=== PATIENT | female | born 1990 ===

== ENCOUNTER 2024-04-04 03:16 | Inpatient (IN) | payer OTHER, SELFPAY ==
[2024-04-03] VITALS (16 sets, daily range): BP systolic 74–108; BP diastolic 39–66
[2024-04-03 19:30] LABS: % Basophils 0.2 % (0-2); % Immature Granulocytes 0.4 % (0-0.5); % Lymphocytes 5.3 % (20.5-51.1); % Monocytes 5.1 % (1.7-9.3); Absolute Immature Granulocytes 0.1 10^3/uL (0-0.05); Absolute Lymphocytes 0.9 10^3/uL (1.2-3.4); Absolute Monocytes 0.9 10^3/uL (0.1-0.6); Absolute Neutrophils 15.7 10^3/uL (1.4-6.5); Hematocrit 39.4 % (37.0-47.0); Hemoglobin 14.2 g/dL (12.0-16.0); Mean Corpuscular Hgb 32.6 pg (27.0-31.0); Mean Corpuscular Volume 90.4 fL (81.0-99.0); Mean Platelet Volume 9.6 fL (7.4-10.4); Nucleated Red Blood Cells % 0 %; Platelet Count 217 10^3/uL (130-400); Red Blood Cell Count 4.36 10^6/uL (4.20-5.40); Red Cell Dist. Width 11.9 % (11.5-14.5); White Blood Cell Count 17.6 10^3/uL (4.8-10.8)
--- NOTE | 2024-04-03 19:33 | ED.GENMED ---
History of Present Illness
General
Chief Complaint: Abdominal Symptoms
Source: patient
Exam Limitations: none
Time Seen by Provider: 04/03/24 19:14
History of Present Illness
History of Present Illness:
This is a 34 year old female that comes in with c/o vomiting and diarrhea. States that she awoke this morning not feeling well. State that she then started with nausea and vomiting with diarrhea. States that she also had abd pain and this continued
to get worse all day. States that she does have a yeast infection right now. States that she gets hot and then chills after vomiting and she felt lightheaded like she was going to pass out. Denies any fever, chest pain, SOB, headache, dizziness,
urinary burning.
Past History
Past History
ED Past Medical History: None; Negative Asthma, HTN, Hypercholesterolemia or NIDDM
ED Past Surgical History: None
Social History
Tobacco: Non-smoker
Alcohol: Occasional
Personal:
Living: with family
Review of Systems
Review of Systems
All Other Systems: ROS reviewed and negative except as documented in HPI and ROS
Constitutional: Reports other (Hot and then cold after vomiting); Denies fever
EENT: Reports no symptoms
Respiratory: Reports no symptoms; Denies cough or trouble breathing
Cardiac: Reports no symptoms; Denies chest pain
ABD/GI: Reports abdominal pain (pain), nausea, vomiting and diarrhea
: Reports no symptoms; Denies dysuria, frequency or urgency
Musculoskeletal: Reports no symptoms
Skin: Reports no symptoms
Neurological: Reports other (Lightheaded); Denies dizzy or headache
Psychiatric: Reports no symptoms
Phy Exam
General Physical Exam
General Presentation: mild distress
General age: appears stated age
General Skin: warm and dry
General Habitus: normal
General Mental: alert
General Hydration: dry mucous membranes
ENT Exam
ENT Exam: TM's normal, pharynx normal and neck supple
Eye Exam
Eye Exam: EOMI
Cardiovascular Exam
Cardiovascular Exam: regular rate/rhythm, no edema, no murmur and normal peripheral pulses
Pulmonary Exam
Pulmonary Exam: lungs clear, no respiratory distress, no rales, chest non tender, no crackles, no wheezing and no cough
Gastrointestinal Exam
Gastrointestinal Exam: normal bowel sounds, soft, no organomegaly, no pulsatile mass, non distended, tender (Epigastric and right sided tenderness with palpation) and other (rectal exam hem positive)
Musculoskeletal Exam
Musculoskeletal Exam: full ROM and no edema
Skin Exam
Skin Exam: normal color, warm/dry, no rash and no petechia
Psychiatric Exam
Psychiatric Exam: normal mood/affect
Course
Orders/Labs/Results
Orders:
Orders
04/03/24 19:24
Complete Blood Count/With Diff Urgent
Comprehensive Metabolic Panel Urgent
Lipase Urgent
04/03/24 19:33
0.9% Sodium Chloride 1000 ml [Nss] 1,000 ml IV BOLUS
Metoclopramide [Reglan] 10 mg IV NOW STA
US Abdomen Complete/Upper Urgent
Comment:
Reason For Exam: Upper abd pain
US 1st Trimester Urgent
Comment:
Reason For Exam: abd pain,
04/03/24 19:34
Urinalysis Reflex To Culture Urgent
Date Specimen was Collected: 04/04/24
Time Specimen was Collected: 00:38
US Abdomen - Appendix Only Urgent
Comment:
Reason For Exam: Right sided abd pain
04/03/24 19:41
Acetaminophen 1000MG/100Ml [Ofirmev] 1,000 mg in 100 ml IV ONCE
Acetaminophen IV Indication:: ED Narcotic Naive Pt-ONCE
04/03/24 21:58
0.9% Sodium Chloride 1000 ml [Nss] 1,000 ml IV BOLUS
04/03/24 23:40
Calcium 200mg(Ca. Carb. 500mg) [Tums Chewable Tablet] 200 mg PO NOW STA
04/04/24 00:49
Urine Microscopic Reflex Cult Urgent
Urine Culture Urgent
PETROS Source: U
Specimen Description:
Date Specimen was Collected: 04/04/24
Time Specimen was Collected: 00:38
Abnormal Lab Results
04/03/24 04/04/24
19:24 00:49
WBC 17.6 H 10^3/uL
(4.8-10.8)
MCH 32.6 H pg
(27.0-31.0)
Abs Immat Gran (auto) 0.1 H 10^3/uL
(0-0.05)
Absolute Neuts (auto) 15.7 H 10^3/uL
(1.4-6.5)
Absolute Lymphs (auto) 0.9 L 10^3/uL
(1.2-3.4)
Absolute Monos (auto) 0.9 H 10^3/uL
(0.1-0.6)
Neutrophils % 89.0 H %
(42.2-75.2)
Lymphocytes % 5.3 L %
(20.5-51.1)
Carbon Dioxide 20 L mmol/L
(22-30)
Glucose 139 H mg/dl
(70-99)
Calcium 10.4 H mg/dl
(8.4-10.2)
Urine Ketones 3+ A
(Negative)
Leukocyte Esterase Rfl 1+ A
(Negative)
Urine Glucose 1+ A
(Negative)
04/03/24 19:24
04/03/24 19:24
Leukocytosis, carbon dioxide slightly low. Hyperglycemia. calcium slightly elevated. Urine negative for infection. Lipase normal at 83
Vital Signs
Initial and Last Documented VS:
Initial Vital Signs
Temp Pulse Resp BP Pulse Ox
97.5 F 64 18 94/47 97
04/03/24 19:12 04/03/24 19:12 04/03/24 19:12 04/03/24 19:12 04/03/24 19:12
Last Documented Vital Signs
Temp Pulse Resp BP Pulse Ox
97.5 F 80 19 99/50 99
04/03/24 19:12 04/03/24 23:45 04/03/24 23:45 04/03/24 23:45 04/03/24 22:26
MDM/Problems Addressed
Differential Diagnosis Includes:
GI viral syndrome, gastritis, Gallbladder disease
MDM/Problems Addressed:
This is a 34 year old female that comes in with c/o vomiting and diarrhea. States that she started with abd pain today and then vomiting and diarrhea. states that this continued to get worse throughout the day. States that she can't keep anything
down. States that she felt lightheaded with the vomiting and was sweaty when vomiting. Denies any fever, chest pain, SOB, headache, dizziness, urinary burning.
Will get labs, US Abd, First trimester US and Appendix.
back into see patient as patient got up to the bathroom and had diarrhea that was bloody. Rectal exam completed and rectal is positive for blood. Explained to patient that this may be a colitis but the fact that she is a CT scan will not be
done. May need to admit patient for antibiotics and fluids as patient BP is very low.
US pelvis cont- The ovaries were not seen, presumably obscured by bowel. NO appreciable free fluid or adnexal masses.
Back into see patient. Explained that her blood work shows an elevated WBC's and her Stool was hem positive. Patient US are negative. Patient is 11 weeks 0 days. This may be a colitis as patient has abd tenderness with palpation. Will place on Zosyn
and admit patient. Patient continues to be nauseated will also give Reglan. Hospitalist notified about admission.
Chronic conditions affecting care:
NA
Acute Exacerbation and/or Progression of Chronic Illness:
NA
*Radiology
Radiology exam reviewed: radiology read reviewed (US abd-night hawk- Normal gallbladder. No gallstones, gallbladder wall thickening, or pericholecystic fluid. Negative Sonographic Bermudez's sign. No biliary ductal dilation. The visualized common duct
measures 4mm in caliber. Normal liver. Borderline splenomegaly at 14cm may be physiologic in gravid ), all reviewed NAD by ED Provider (US abd cont- state. Pancreas largely obscured by bowel gas. Normal bilateral kidneys. No hydronephrosis. US
appendix night hawk- The appendix is not sonographically identified. Accordingly, cannot technically exclude acute appendicitis based on this study. No identified free fluid, abnormal fluid) and other (US appendix cont- collections, or obvious
masses within the right lower quadrant. US pelvis- Single live intrauterine with heart rate of 165 beats/min. Extimated gestational age of 11 weeks 0 days by crown-rump length. Small subchorionic hemorrhage measuring [id number].)
*Pulse Oximetry
Patient hypoxic: no
*EKG
Interpreted by ED Provider?: NA
Rate: EKG- N/A
*[employer] Airspace Control Officer Interpretation
Rate: [employer] Airspace Control Officer- N/A
*Critical Care Note
Total Time (30-74mins, 75-104mins- exclusive of procedures): Not Applicable
ED Attending Note
-
Portions of this chart may have been created with voice recognition software.� Occasional wrong word or��sound alike� substitutions may have occurred due to the inherent limitations of voice recognition software.
Discharge Plan
Departure
Patient Disposition: Admit
Date of Disposition: 04/04/24
Time of Disposition: 01:16
Admit to: Med/Surg
Presentation/result/management discussed w/ accepting MD/DO: Hospitalist
Patient with high blood pressure during this ER visit?: No
Condition: Good
Covid-19: Not Applicable
Discharge Problem:
Abdominal pain, Nausea & vomiting, Heme positive stool
Referrals:
Josse Donnelly MD [Family Provider] -
Interventions
Interventions:
*Risk Screen - Suicide Last Done: 04/03/24 19:13
*General Assessment Last Done: 04/03/24 19:13
*Neglect/Abuse Screening Last Done: 04/03/24 19:13
*ED COVID-19 Vaccine History Last Done: 04/03/24 19:28
JB-Pqluyu-Vtaydwayrl Assessment Last Done: 04/03/24 19:27
Discharge Date and Time
Print Language: ITALIAN
[2024-04-03 19:44] LABS: ALT (SGPT) 16 U/L (0-35); AST (SGOT) 19 U/L (14-36); Albumin 4.8 g/dl (3.5-5.0); Alkaline Phosphatase 63 U/L (38-126); Blood Urea Nitrogen 9 mg/dl (7-17); Calcium 10.4 mg/dl (8.4-10.2); Carbon Dioxide 20 mmol/L (22-30); Chloride 101 mmol/L (98-107); Glucose 139 mg/dl (70-99); Lipase 83 U/L (23-300); Potassium 3.7 mmol/L (3.5-5.1); Sodium 137 mmol/L (135-145); Total Bilirubin 0.6 mg/dl (0.2-1.3); Total Protein 7.1 g/dl (6.3-8.2); eGFR > 60.00
[2024-04-03] MEDS: NSS 1000 IV ×2 (19:55→21:58)
[2024-04-03] MEDS: OFIRMEV 100 IV (19:55)
[2024-04-03] MEDS: REGLAN 10 MG IV (19:55)
[2024-04-03] MEDS: TUMS CHEWABLE TABLET 200 MG PO (23:49)
[2024-04-04] VITALS (12 sets, daily range): BP systolic 90–114; BP diastolic 49–93; PULSE 95–105; BMI 30.1
[2024-04-04 00:56] LABS: Urine Albumin Trace (Neg - Trace); Urine Bilirubin Negative (Negative); Urine Character Slightly Cloudy (Clear); Urine Color Yellow; Urine Glucose 1+ (Negative); Urine Ketone 3+ (Negative); Urine Leukocyte 1+ (Negative); Urine Nitrite Negative (Negative); Urine Occult Blood Negative (Negative); Urine Specific Gravity 1.025 (<1.030); Urine Urobilinogen Negative (Neg - 1+)
[2024-04-04] MEDS: ZOSYN 50 IV ×2 (01:21→08:09)
[2024-04-04] MEDS: REGLAN 10 MG IV ×3 (01:21→20:49)
[2024-04-04 01:24] LABS: Urine Squamous Cell >30 /LPF (Few)
[2024-04-04 01:25] LABS: Urine Bacteria Moderate (Negative)
--- NOTE | 2024-04-04 02:30 | HPS.HSE ---
Family Physician
-
Family Physician: Josse Donnelly
Chief Complaint
-
N/V/D
History of Present Illness
Patient is a 34y F with no significant PMH who presents to ED complaining of N/V/D. Patient is 11 weeks . She has been having some issues with AM nausea; however, today she felt extremely nauseated and had multiple episodes of emesis
throughout the day. Her symptoms became more severe around 3 PM and included crampy upper abdominal pain and multiple episodes of loose / watery diarrhea. Later in the evening, diarrhea has appeared 'orange' or 'rust-colored'.
Patient complains of feeling lightheaded and notes that she nearly passed out.
No known sick contacts.
She ate at a restaurant last night and had fish tacos (that her did not have - they otherwise had same foods).
With worsening symptoms and inability to tolerate any PO intake, patient presented to the ED for further evaluation.
Medical History
Past Medical History
Past Medical History: Reports Other
Additional Past Medical History:
A2
Past Surgical History: Reports Other
Additional Past Surgical History:
D&E
Left ACL Repair
Rhinoplasty
T&A
Social History
Tobacco: Non-smoker
Alcohol: None
Drug: None
Personal:
Living: With Family
Family History
Family History: Not pertinent
Allergies / Home Medications
Allergies reflects when Allergies were last updated in [facility].
Home Medications with original date entered in [facility]
Allergy/Medication List:
Allergies
Allergy/AdvReac Type Severity Reaction Status Date / Time
azithromycin Allergy Intermediate Unknown Verified 04/03/24 19:38
Home Medications
aspirin 81 mg tablet 81 mg PO DAILY 04/04/24
doxylamine 10 mg-pyridoxine (vit B6) 10 mg tablet,delayed release (Diclegis) 1 tab PO BID 10/07/24
vit no.133-ferrous fumarate 28 mg-folic acid 800 mcg tablet () 1 tab PO DAILY 04/04/24
progesterone micronized 100 mg vaginal insert 100 mg vaginal DAILY 04/04/24
Review of Systems
-
History Source: Patient
A 12 point ROS was completed and negative except as noted: Yes
Constitutional: Reports Fatigue and Chills; Denies Fever
EENT: Denies Sore Throat
Respiratory: Denies Cough or Trouble Breathing
Cardiac: Denies Chest Pain or Palpitations
Abdomen/GI: Reports Abdominal Pain, Nausea, Vomiting, Diarrhea and Bloody Stools
: Denies Dysuria, Frequency, Flank Pain, Bleeding or Discharge
Musculoskeletal: Denies Joint Pain or Edema
Neurological: Reports Dizzy and Headache
Physical Exam
Vital Signs
Vital Signs
Temp Pulse Resp BP Pulse Ox
98.3 F 83 19 114/74 96
04/04/24 01:00 04/04/24 02:00 04/04/24 02:00 04/04/24 01:15 04/04/24 02:00
Physical Exam
General: Other (34y F in mild distress due to nausea / abdominal pain.)
HEENT: PERRLA and Other (Dry MM.)
Respiratory: Clear; No Wheezes, Rales or Rhonchi
Cardiac: S1/S2 and Regular Rhythm; No Murmur
GI: Soft, Non Tender, Non Distended and Normal Bowel Sounds
Musculoskeletal: No Clubbing, No Cyanosis and No Edema
Neuro: AO x 3
Laboratory Results
-
04/03/24 19:24
04/03/24 19:24
Laboratory Results
Total Bilirubin 0.6 mg/dl (0.2-1.3) 04/03/24 19:24
AST 19 U/L (14-36) 04/03/24 19:24
ALT 16 U/L (0-35) 04/03/24 19:24
Alkaline Phosphatase 63 U/L (38-126) 04/03/24 19:24
Lipase 83 U/L (23-300) 04/03/24 19:24
Impression/Plan
-
A/P: Patient is a 34y F with no significant PMH who is currently 11 weeks and presents to ED complaining of N/V/D.
Enteritis / Colitis
Sepsis secondary to the above
- Admit for further evaluation and treatment.
- Patient presents with leukocytosis, tachycardia and bloody diarrhea c/w colitis or enteritis - likely infectious.
- IV abx with Zosyn pending culture data.
- Supportive care including IVFs, antiemetics, etc.
- Follow for clinical improvement.
- Consider GI evaluation if symptoms worsen or persist.
- 11 Weeks GA
- Stable. Obstetrics US done in the ED this evening shows live intrauterine with small subchorionic hemorrhage.
- Continue low dose ASA.
- History of two previous spontaneous abortions.
- Follow for any new issues / complaints.
- Follow-up with usual OB after discharge (Dr. Arauz @ [facility]).
DVT Prophylaxis: SCDs
Code Status: Full
[2024-04-04] MEDS: LR 1000 IV ×3 (04:04→20:49)
[2024-04-04 04:24] LABS: Hemoglobin 12.1 g/dL (12.0-16.0); Mean Corp Hgb Conc. 36.7 g/dL (33.0-37.0); Mean Corpuscular Hgb 32.9 pg (27.0-31.0); Mean Corpuscular Volume 89.7 fL (81.0-99.0); Mean Platelet Volume 9.9 fL (7.4-10.4); Platelet Count 179 10^3/uL (130-400); Red Blood Cell Count 3.68 10^6/uL (4.20-5.40); Red Cell Dist. Width 11.9 % (11.5-14.5); White Blood Cell Count 7.3 10^3/uL (4.8-10.8)
--- NOTE | 2024-04-04 04:25 | EDRN ---
Report received, introduced myself to patient and started fluids, patient ambulated to the restroom and back in bed, she had a bowl movement however also urinated in specimen bucket, informed her we need the stool without urine in it as well, stool
appears maroon and liquid in color and consistency.
[2024-04-04 04:50] LABS: Blood Urea Nitrogen 9 mg/dl (7-17); Calcium 8.4 mg/dl (8.4-10.2); Carbon Dioxide 16 mmol/L (22-30); Chloride 106 mmol/L (98-107); Estimated Creatinine Clearance 111 ml/min; Glucose 127 mg/dl (70-99); Potassium 3.9 mmol/L (3.5-5.1); Sodium 135 mmol/L (135-145); eGFR > 60.00
--- NOTE | 2024-04-04 08:02 | W.PN.HOSP.TC ---
Today's Communication/Plan
-
Assessment / Plan
Assessment / Plan
Ms. Deborah Vlilatoro is a 34yo [id number] at 11 weeks 4 days gestation admitted 04/04 for abdominal pain.
Sepsis secondary to gastroenteritis
- zosyn
- abdomen u/s: splenomegaly
- IVF, antipyretics, antiemetics, pepcid
- stool, urine cx pending
- O&P pending
- ID consulted
- 11 weeks gestation by LMP
- confirmed w u/s in ED. Presence of small subchorionic hemorrhage
- ASA
- SUPPLY CHAIN INTERN consulted
DVT prophylaxis
- SCDs
Code status: FULL CODE
Diet:
Anticipated Discharge: > 48 hours
Subjective/Interval History
-
Date of Service: April 04, 2024
Ms. Deborah Villatoro is a pleasant 34yo [id number] at 11 weeks 4 days gestation by LMP admitted 04/04 for abdominal pain. Came to the ED for upper abdominal pain, recurrent emesis, and bloody diarrhea. This started after eating fish tacos at a
restaurant on Thursday night. Cannot tolerate food or liquids. +lightheaded, dizzy while retching, but unable to produce emesis. Denies vaginal bleeding.
Confirmed w Dr. Arauz at [facility]. Hx 2 spontaneous abortions.
Objective Data
-
Labs:
Laboratory Results
04/04/24
04:06
WBC 7.3
Hgb 12.1
Hct 33.0 L
Plt Count 179
Sodium 135
Potassium 3.9
Chloride 106
Carbon Dioxide 16 L
BUN 9
Creatinine 0.5 L
Glucose 127 H
Calcium 8.4 D
Vital Signs:
Vital Signs
Temp Pulse Resp BP Pulse Ox
98.3 F 89 21 111/93 98
04/04/24 01:00 04/04/24 06:00 04/04/24 06:00 04/04/24 05:00 04/04/24 06:00
Review of Systems
-
History Source: Patient
All other systems: Reviewed and negative
Constitutional: Denies Fever or Chills
Respiratory: Reports No Symptoms
Cardiac: Reports No Symptoms
Abdomen/GI: Reports Abdominal Pain (upper), Nausea, Vomiting, Diarrhea and Bloody Stools
Genitourinary: Denies Dysuria, Urgency or Bleeding
Skin: Reports No Symptoms
Neuro: Reports Dizzy and Lightheadedness
Physical Exam
-
General: Well Developed, Well Nourished and Pain
HEENT: Normocephalic and Atraumatic
Respiratory: Clear to Auscultation; Negative Wheezes, Rales or Rhonchi
Cardiac: Regular Rhythm and S1/S2; Negative Murmur, Rub or Gallop
GI: Soft, Nondistended, Normal Bowel Sounds and Tender (epigastric)
Musculoskeletal: No Cyanosis and No Edema
Skin: Warm and Dry; Negative Rash
--- NOTE | 2024-04-04 08:05 | PHANOTE ---
med rec note- patient refusing to go med list because she stated that the meds are not important and she can skip them while she is in the hospital. patient has no ecw and just pharmacy records
[2024-04-04] MEDS: LOW STRENGTH ASPIRIN PO (08:22)
[2024-04-04] MEDS: PRENATAL PLUS PO (08:22)
[2024-04-04] MEDS: NSS (PRESERVATIVE FREE) 8 ML IV (12:19)
[2024-04-04] MEDS: PEPCID 20 MG IV (12:19)
--- NOTE | 2024-04-04 12:21 | CON.ID ---
Consultation
-
Date/Time Consultation Requested: 04/04/2024 1148
Date/Time Consultation Performed: 04/04/2024 1220
Requesting Provider: Dr. Eugenia Santana
Performing Provider: Dr. Rubi Peace
Reason for Consultation: 11 weeks with gasteroenteritis
Chief Complaint / Past History
Chief Complaint
vomiting and diarrhea
History of Present Illness
34-year-old female who is currently 11-week gestation presented to the ER last evening for diarrhea. She states that she and her ate out on Thursday night April 02 at 5 PM. They shared an appetizer. She then had fish taco and her
ordered something else. Thursday morning, she felt somewhat unwell. Around 3 PM she developed nausea, vomiting and diarrhea. Initially the stool was soft then it turned into liquid. She had diarrhea almost every 1/2 hour to 1 hour.
Positive abdominal discomfort. No fevers. She came to the ED last night. WBC 17.6. Abd US showed splenomegaly. She is started on Zosyn. No recent abx. No travel history. No ill contacts. is well.
Past History
Past Medical History: None
Additional Past Surgical History:
D&E
Left ACL Repair
Rhinoplasty
T&A
Allergy History:
azithromycin Allergy (Intermediate, Verified 04/03/24 19:38)
- GI upset. Blood in stool.
Medications Reviewed: Yes
Current Antibiotics:
Zosyn
Social History
Tobacco: Non-Smoker
Alcohol: None
Drug: None
Personal:
Employment: Employed (Works from home. )
Family History
Family History: Not Pertinent
Review of Systems
Review of Systems
General: Change in Appetite; Negative Fever or Chills
HEENT: Negative Sinus Problems, Headache or Pharyngitis
Cardiovascular: Negative Chest Pain or Dyspnea
Respiratory: Negative Dyspnea or Cough
Gasteroenterology: Nausea and Vomiting
Genital / Urological: Negative Dysuria or Flank Pain
Endocrine: Weakness
Skin / Hair / Nails: Negative Rash
Neurological: Dizziness
All systems: All other systems were reviewed and were negative
Vital Signs
Temp Pulse Resp BP Pulse Ox
98.4 F 90 14 105/61 95
04/04/24 11:24 04/04/24 11:24 04/04/24 11:24 04/04/24 11:24 04/04/24 11:24
Physical Exam
Physical Exam
Constitutional: No Acute Distress and Comfortable
Head: Other (No frontal or maxillary sinus tenderness.)
Eyes: No Conjunctival Hemorrhage and Sclera Anicteric
Cardiovascular: Regular Rate and S1/S2
Pulmonary: Clear
Gastrointestinal: Soft, Non Tender, Non Distended and Normal Bowel Sounds
Genito-Urinary: Negative CVA Tenderness
Extremities: Negative Edema
Neurological: AO x 3
Lab / Diagnostic Study Results
04/04/24 04:06
04/04/24 04:06
Abs Immat Gran (auto) 0.1 10^3/uL (0-0.05) H 04/03/24 19:24
Absolute Neuts (auto) 15.7 10^3/uL (1.4-6.5) H 04/03/24 19:24
Absolute Lymphs (auto) 0.9 10^3/uL (1.2-3.4) L 04/03/24 19:24
Absolute Monos (auto) 0.9 10^3/uL (0.1-0.6) H 04/03/24 19:24
Absolute Basos (auto) 0.0 10^3/uL (0-0.2) 04/03/24 19:24
Immature Gran % 0.4 % (0-0.5) 04/03/24 19:24
Neutrophils % 89.0 % (42.2-75.2) H 10/06/24 19:24
Lymphocytes % 5.3 % (20.5-51.1) L 04/03/24 19:24
Monocytes % 5.1 % (1.7-9.3) 04/03/24 19:24
Eosinophils % 0.0 % (0-6) 04/03/24 19:24
Basophils % 0.2 % (0-2) 04/03/24 19:24
Ur Squamous Epith Cells >30 /LPF (Few) 04/04/24 00:49
Microbiology Results
Micro:
04/04/24 08:07 Cryptosporidium/Giardia - Pending
Feces/Stool
04/04/24 08:07 Salmonella/Shigella Culture - Pending
Feces/Stool Campylobacter Culture - Pending
Shiga Toxin Test - Pending
Stool Leukocytes - Final
04/04/24 00:49 Urine Culture - Pending
Urine
Assessment / Plan
# Gastroenteritis, N/V, bloody diarrhea
# Leukocytosis resolved
# 11 week intrauterine gestation
- onset of sxs >24 hrs after exposure (fish taco)
- Stool without fecal leukocytes therefore less likely STEC
-Stool cx pending.
-Narrow Zosyn to ceftriaxone for now.
[2024-04-04] MEDS: ROCEPHIN 1000 MG IV (14:02)
[2024-04-04] MEDS: STERILE WATER FOR INJECTION 10 ML IV (14:02)
[2024-04-04] MEDS: TYLENOL 650 MG PO ×2 (14:03→18:41)
--- NOTE | 2024-04-04 14:29 | CM ---
CM reviewed chart. Patient and in room. CM introduced self and role. Patient lives with her , William, and she is independent. She drives. She works from home. She lives in a multi-level home. She owns no DME. Her will provide
transportation once she is discharged from the hospital. She is active with a doctor and pharmacy.
ANTICIPATED DISCHARGE PLAN: Home with when medically cleared.
--- NOTE | 2024-04-04 15:05 | W.PN.OBG.DWH ---
Today's Communication / Plan
-
continue with fluids, abx
await cultures
US reviewed with pt: She has Nuchal translucency us scheduled for 12 weeks. Plans to have NIPT testing
for f/up with her ob at [facility] when discharged
Assessment/Plan
-
pt seen at 1115
full consult dictated
Subjective Data
-
denies vaginal bleeding. N/v improved with fluids and antiemetics. 6 episodes diarrhea since seen in ER
Objective Data
-
Laboratory Results
04/04/24 04:06
04/04/24 04:06
Vital Signs
Temp Pulse Resp BP Pulse Ox
98.4 F 90 14 105/61 95
04/04/24 11:24 04/04/24 11:24 04/04/24 11:24 04/04/24 11:24 04/04/24 11:24
--- NOTE | 2024-04-04 20:15 | PTCARENOTE ---
Received pt from ED via stretcher. Pt ambulated to bed independently. AAOX3. Family at bedside. Pt complained of headache, able to tolerate. 1 home medication sent to pharmacy to be profiled. Assessed and oriented to room. Pt verbalized
understanding of call rizvi. Call rizvi within close reach. Will continue to monitor.
[2024-04-04] MEDS: FLUSH (NSS) 2 FLUSH IV (20:54)
[2024-04-04] MEDS: NON-FORMULARY ITEM 200 MG VAG (21:49)
[2024-04-05] MEDS: TYLENOL 650 MG PO (02:01)
[2024-04-05 03:20] VITALS: BP 94/61
[2024-04-05] MEDS: LR 1000 IV (04:47)
[2024-04-05 06:58] LABS: Hematocrit 30.2 % (37.0-47.0); Hemoglobin 11.1 g/dL (12.0-16.0); Mean Corp Hgb Conc. 36.8 g/dL (33.0-37.0); Mean Corpuscular Hgb 32.6 pg (27.0-31.0); Mean Corpuscular Volume 88.8 fL (81.0-99.0); Mean Platelet Volume 9.6 fL (7.4-10.4); Platelet Count 150 10^3/uL (130-400)
--- NOTE | 2024-04-05 07:30 | W.PN.HOSP.TC ---
Addendum entered and electronically signed by Chu Vergara MD 04/05/24 15:13:
dc home
culture data thus far negative
stool cx pending though
per ID complete 3d of atb. today is day 3/3
able to tolerate diet well witgh resolution of bloody diarrhea
Original Note:
Today's Communication/Plan
-
.
Assessment / Plan
Assessment / Plan
Ms. Deborah Villatoro is a 34yo [id number] at 11 weeks 4 days gestation admitted 04/04 for abdominal pain.
Sepsis secondary to gastroenteritis
- zosyn narrowed to ceftriaxone
- abdomen u/s: splenomegaly
- IVF, antipyretics, antiemetics, pepcid
- O&P negative
- no stool leukocytes
- negative C difficile
- stool, urine cx pending
- ID consulted
- dc after today's dose of ceftriaxone (day 3)
- 11 weeks gestation by LMP
- small subchorionic hemorrhage on u/s, but no vaginal bleeding
- avoid teratogens
- ASA
- FIELD CLERK consulted - pt is stable
DVT prophylaxis
- SCDs
Code status: FULL CODE
Diet:BRAT
Anticipated Discharge: Today
Subjective/Interval History
-
Date of Service: April 05, 2024
Ms. Deborah Villatoro is a 34yo [id number] at 11 weeks 4 days gestation admitted 04/04 for abdominal pain. Her pain is overall improving. Last vomited about 3pm yesterday. Diarrhea is improving. Nonbloody stools. Able to tolerate PO intake.
Objective Data
-
Labs:
Laboratory Results
04/05/24
06:44
WBC 5.0
Hgb 11.1 L
Hct 30.2 L
Plt Count 150
Sodium Pending
Potassium Pending
Chloride Pending
Carbon Dioxide Pending
BUN Pending
Creatinine Pending
Glucose Pending
Calcium Pending
Vital Signs:
Vital Signs
Temp Pulse Resp BP Pulse Ox
98.1 F 79 18 94/61 97
04/05/24 03:20 04/05/24 03:20 04/05/24 03:20 04/05/24 03:20 04/05/24 03:20
I&O
04/04/24 04/05/24 04/06/24
06:59 06:59 06:59
Intake Total 1250 / 1250
Balance 1250 / 1250
Review of Systems
-
History Source: Patient
Constitutional: Reports No Symptoms
Respiratory: Reports No Symptoms
Cardiac: Reports No Symptoms
Abdomen/GI: Denies Nausea, Vomiting, Diarrhea or Bloody Stools
Genitourinary: Reports No Symptoms
Skin: Reports No Symptoms
[2024-04-05 07:44] VITALS: BP 102/63
[2024-04-05 07:44] LABS: Blood Urea Nitrogen < 2 mg/dl (7-17); Calcium 8.4 mg/dl (8.4-10.2); Carbon Dioxide 21 mmol/L (22-30); Chloride 107 mmol/L (98-107); Estimated Creatinine Clearance > 125 ml/min; Glucose 93 mg/dl (70-99); Potassium 3.4 mmol/L (3.5-5.1); Sodium 137 mmol/L (135-145); eGFR > 60.00
[2024-04-05] MEDS: PRENATAL PLUS 1 TABLET PO (08:04)
[2024-04-05] MEDS: LOW STRENGTH ASPIRIN 81 MG PO (08:04)
[2024-04-05] MEDS: NON-FORMULARY ITEM 200 MG VAG (08:07)
--- NOTE | 2024-04-05 10:44 | W.PN.GYN ---
Today's Communication / Plan
-
Patient is a 34yo @11.2 weeks w/ gastroenteritis
- Medical management per primary team. Stool cultures pending. Continue abx
- stable from OB perspective. US w/ small subchorionic hemorrhage- nothing to do
- Patient to follow up once discharged w/ OB at [facility]
Physician Note
-
Subjective: Patient with no complaints. She is feeling much better this morning. Has been able to tolerate some food. Denies further episodes of vomiting. Continues to have diarrhea. Denies bleeding or cramping.
O:
VSS
General: well appearing no acute distress
Cardio: RRR
Pulm: no increased work of breathing
Abd: soft, nontender
Ext: nontender
A/P: Patient is a 34yo @11.2 weeks w/ gastroenteritis
- Medical management per primary team. Stool cultures pending. Continue abx
- stable from OB perspective. US w/ small subchorionic hemorrhage- nothing to do
- Patient to follow up once discharged w/ OB at [facility]
--- NOTE | 2024-04-05 12:01 | W.PN.ID1 ---
Date of Service
Date of Service: April 05, 2024
Today's Communication
Can dc home after today's dose of ceftriaxone (d3 abx) then observe off abx.
Assessment / Plan
# Gastroenteritis, N/V, bloody diarrhea. improving
# Leukocytosis resolved
# 11 week intrauterine gestation
- onset of sxs >24 hrs after exposure (fish taco)
- Stool without fecal leukocytes therefore less likely STEC
-Stool cx C. diff neg, O+P neg.
-Stool cx pending.
-Can dc home after today's dose of ceftriaxone (d3 abx) then observe off abx.
Chief Complaint
-: Other (Diarrhea)
Subjective / Review of Systems
Feeling better. Tolerated breakfast.
No further blood in stool. Stool frequency decreased.
Vital Signs / Physical Exam
Vital Signs
Vital Signs
Temp Pulse Resp BP Pulse Ox
98.5 F 82 16 102/63 97
04/05/24 07:44 04/05/24 07:44 04/05/24 07:44 04/05/24 07:44 04/05/24 07:44
Physical Exam
Constitutional: No Acute Distress and Comfortable
Cardiovascular: Regular Rate and S1/S2
Pulmonary: Clear
Gastrointestinal: Soft, Non Tender and Non Distended
Neurological: AO x 3
Objective Data
Lab Data
Lab Results
04/05/24 06:44
04/05/24 06:44
Estimated Creat Clear > 125 ml/min 04/05/24 06:44
Total Bilirubin 0.6 mg/dl (0.2-1.3) 04/03/24 19:24
AST 19 U/L (14-36) 04/03/24 19:24
ALT 16 U/L (0-35) 04/03/24 19:24
Alkaline Phosphatase 63 U/L (38-126) 04/03/24 19:24
Most recent labs reviewed.
Micro Results:
04/04/24 08:07 Salmonella/Shigella Culture - Preliminary
Feces/Stool Culture in Progress
Campylobacter Culture - Preliminary
Culture in Progress
Shiga Toxin Test - Pending
Stool Leukocytes - Final
04/04/24 08:07 Cryptosporidium/Giardia - Final
Feces/Stool Negative for Cryptosporidium and/or Giardia Lamblia
antigens.
C. difficile GDH Antigen & Toxins - Final
Negative for toxigenic C.difficile
04/04/24 00:49 Urine Culture - Preliminary
Urine
Care Review
Plan reviewed with: Physician (Dr. Santana)
--- NOTE | 2024-04-05 12:15 | W.DCSUMMARY ---
Documented by User: Eugenia Santana DO, Resident 04/05/24 12:42
Discharge Summary
Discharge Data
Date of Admission: 04/04/24
Date of Discharge: 04/05/24
-
Pending Results: Yes
Additional Pending Results:
stool culture, urine culture
Hospital Course
Ms. Deborah Villatoro is a 34yo [id number] at 11 weeks 5 days gestation admitted 04/04 for abdominal pain. Came to the ED for abdominal pain, vomiting, and bloody diarrhea after eating fish tacos at dinner. Hypovolemic, resuscitated with IVF. Started on
zosyn. US abdomen, appendix, and obstetrics noted splenomegaly and a small subchorionic hemorrhage. Evaluated by OBGYN here and deemed stable. Evaluated by ID and abx narrowed to ceftriaxone. Today, hemodynamically stable, afebrile, resolution of GI
sx, and able to tolerate PO food and water. Able to dc after today's ceftriaxone (day 3 of abx).
Discharge Plan
-
Patient Disposition: Home (Routine Discharge)
Discharge Diagnosis/Procedures: Gastroenteritis
Condition: Good
Activity Restrictions/Additional Instructions:
Please follow up with your obgyn for your 12week visit.
Please follow up with your primary care provider
Please return to the hospital if you experience new or worsening symptoms
Instructions: Food poisoning
Referrals:
Josse Donnelly MD [Family Provider] - in one to two weeks
Prescriptions:
Continued
28-800 mg-mcg Tablet
1 tab PO DAILY
aspirin 81 mg Tablet,Delayed Release (Dr/Ec)
81 mg PO DAILY
progesterone micronized 200 mg Capsule
200 mg vaginal BID
Bonjesta 20-20 mg Tablet,Ir,Delayed Rel,Biphasic
1 tab PO HS
Discharge Orders:
Discharge Patient (As Directed); Ordered 04/05/24
Ordered By: Eugenia Santana
Discharge Date and Time
Print Language: IRAQI

Documented by User: Chu Vergara MD 04/05/24 15:09
Discharge Summary
Discharge Data
Date of Admission: 04/04/24
Date of Discharge: 04/05/24
Discharge Plan
-
Patient Disposition: Home (Routine Discharge)
Discharge Diagnosis/Procedures: Gastroenteritis
Condition: Good
Activity Restrictions/Additional Instructions:
Please follow up with your obgyn for your 12week visit.
Please follow up with your primary care provider
Please return to the hospital if you experience new or worsening symptoms
Instructions: Food poisoning
Referrals:
Josse Donnelly MD [Family Provider] - in one to two weeks
Prescriptions:
Continued
28-800 mg-mcg Tablet
1 tab PO DAILY
aspirin 81 mg Tablet,Delayed Release (Dr/Ec)
81 mg PO DAILY
progesterone micronized 200 mg Capsule
200 mg vaginal BID
Bonjesta 20-20 mg Tablet,Ir,Delayed Rel,Biphasic
1 tab PO HS
Discharge Orders:
Discharge Patient (As Directed); Ordered 04/05/24
Ordered By: Eugenia Santana
Discharge Date and Time
Print Language: IRAQI
[2024-04-05] MEDS: STERILE WATER FOR INJECTION 10 ML IV (14:40)
[2024-04-05] MEDS: ROCEPHIN 1000 MG IV (14:40)
--- NOTE | 2024-04-05 14:47 | CM ---
CM reviewed chat and noted dc order
No dc needs noted
Discharge Disposition- home, no needs
[2024-04-05 15:41] VITALS: BP 109/61
== END 2024-04-05 16:22 | disposition home or self-care (01) | DRG 831 ==
LOC: 3 WEST ACU 03:16
PROVIDERS: Clinical Nurse Specialist Family Health; ADMITTING PHYSICIAN Hospitalist; ATTENDING PHYSICIAN Hospitalist; CONSULT PHYSICIAN Internal Medicine Infectious Disease; CONSULT PHYSICIAN Obstetrics & Gynecology; EMERGENCY PHYSICIAN Student in an Organized Health Care Education/Training Program; FAMILY PHYSICIAN Internal Medicine
DX: O98.811 Other maternal infectious and parasitic diseases complicating pregnancy, first trimester (principal); A41.9 Sepsis, unspecified organism; O16.1 Unspecified maternal hypertension, first trimester; O24.911 Unspecified diabetes mellitus in pregnancy, first trimester; Z3A.11 11 weeks gestation of pregnancy; O99.281 Endocrine, nutritional and metabolic diseases complicating pregnancy, first trimester; O21.9 Vomiting of pregnancy, unspecified; O21.8 Other vomiting complicating pregnancy; O99.611 Diseases of the digestive system complicating pregnancy, first trimester; O20.8 Other hemorrhage in early pregnancy
CPT/HCPCS: 76700; 76705; 76801; 80048; 80053; 81003; 81015; 83690; 85025; 85027; 87045; 87046; 87077; 87086; 87147; 87324; 87328; 87329; 87427; 87449; 89055; 96361; 96365; 96375; 96376; 99285